=== PATIENT | male | born 1975 | race Hispanic/Latino ===

== ENCOUNTER → 2018-12-13 | Outpatient (CLI) | payer MEDICAID ==
[~2018-12-13] MED LIST: LIDOCAINE HCL 4% LTA SOL 4 ML VIAL ONE
[2018-12-13 16:52] VITALS: BP 140/93
== END | disposition home or self-care (01) ==
LOC: WHH 13:20
PROVIDERS: ATTEND Family Medicine
DX: S81.802A Unspecified open wound, left lower leg, initial encounter (principal); E11.9 Type 2 diabetes mellitus without complications; I10 Essential (primary) hypertension; E66.01 Morbid (severe) obesity due to excess calories; J45.909 Unspecified asthma, uncomplicated; X58.XXXA Exposure to other specified factors, initial encounter; Y93.89 Activity, other specified; Y92.89 Other specified places as the place of occurrence of the external cause; Y99.8 Other external cause status; Z86.73 Personal history of transient ischemic attack (TIA), and cerebral infarction without residual deficits
CPT/HCPCS: 11042; 87070; 87077 ×2; 87186 ×2; 99205; A4450; A6197

== ENCOUNTER → 2018-12-20 | Outpatient (CLI) | payer MEDICAID ==
[~2018-12-20] MED LIST changes: -LIDOCAINE HCL 4% LTA SOL 4 ML VIAL ONE; +LIDOCAINE/PRILOCAINE CREAM 5GM TUBE TP ONE
[2018-12-20 15:31] VITALS: BP 153/92
== END | disposition home or self-care (01) ==
LOC: WHH 13:00
PROVIDERS: ATTEND Family Medicine
DX: S81.802D Unspecified open wound, left lower leg, subsequent encounter (principal); E11.9 Type 2 diabetes mellitus without complications; I10 Essential (primary) hypertension; E66.01 Morbid (severe) obesity due to excess calories; J45.909 Unspecified asthma, uncomplicated; Z86.73 Personal history of transient ischemic attack (TIA), and cerebral infarction without residual deficits; X58.XXXD Exposure to other specified factors, subsequent encounter
CPT/HCPCS: 11042; A6196; J3490

== ENCOUNTER → 2018-12-27 | Outpatient (CLI) | payer MEDICAID ==
[2018-12-27 16:25] VITALS: BP 133/81
== END | disposition home or self-care (01) ==
LOC: WHH 13:40
PROVIDERS: ATTEND Family Medicine
DX: S81.802D Unspecified open wound, left lower leg, subsequent encounter (principal); E11.9 Type 2 diabetes mellitus without complications; I10 Essential (primary) hypertension; E66.01 Morbid (severe) obesity due to excess calories; J45.909 Unspecified asthma, uncomplicated; Z86.73 Personal history of transient ischemic attack (TIA), and cerebral infarction without residual deficits; X58.XXXD Exposure to other specified factors, subsequent encounter
CPT/HCPCS: 11042; A6197; J3490

== ENCOUNTER 2019-01-03 14:45 | Outpatient (CLI) | payer MEDICAID ==
[2019-01-03 15:59] VITALS: BP 183/89
== END 2019-01-03 16:25 | disposition home or self-care (01) ==
LOC: WHH 14:45
PROVIDERS: ATTEND Family Medicine
DX: S81.802D Unspecified open wound, left lower leg, subsequent encounter (principal); E11.9 Type 2 diabetes mellitus without complications; I10 Essential (primary) hypertension; E66.01 Morbid (severe) obesity due to excess calories; J45.909 Unspecified asthma, uncomplicated; Z86.73 Personal history of transient ischemic attack (TIA), and cerebral infarction without residual deficits
CPT/HCPCS: 99214; J3490